=== PATIENT | male | born 1955 | race Caucasian/White ===

== ENCOUNTER 2020-11-04 13:02 | Emergency (ER) | payer OTHER ==
[~2020-11-04] VITALS: Ht 172.7 cm; Wt 101.2 kg
== END 2020-11-04 18:05 | disposition home or self-care (01) ==
LOC: ER 13:02
DX: R07.89 Other chest pain (principal); H53.8 Other visual disturbances

== ENCOUNTER 2021-02-09 15:32 | Emergency (ER) | payer OTHER ==
[~2021-02-09] VITALS: Ht 170.2 cm; Wt 102.5 kg
[2021-02-09] MEDS ORDERED: TAMSULOSIN HCL0.4 MG PO (15:41)
[2021-02-09] MEDS ORDERED: BUTALB-ASPIRIN1 EACH PO (21:02)
[2021-02-09] MEDS ORDERED: CLONAZEPAM0.5 MG PO (21:05)
== END 2021-02-09 21:20 | disposition home or self-care (01) ==
LOC: ER 15:32
DX: G43.909 Migraine, unspecified, not intractable, without status migrainosus (principal)

== ENCOUNTER 2022-03-16 10:24 | Emergency (ER) | payer OTHER ==
[~2022-03-16] VITALS: Ht 175.3 cm; Wt 114.3 kg
[~2022-03-16 10:24] MED LIST: BUTALB-ASPIRIN1 EACH PO; CLONAZEPAM0.5 MG PO; TAMSULOSIN HCL0.4 MG PO
[2022-03-16] MEDS ORDERED: MEDROLPACK PO (14:17)
[2022-03-16] MEDS ORDERED: METAXALONE800 MG PO (14:17)
[2022-03-16] MEDS ORDERED: ADVIL LIQUI-GE200 MG PO (14:17)
== END 2022-03-16 14:32 | disposition home or self-care (01) ==
LOC: ER 10:24
DX: M54.50 Low back pain, unspecified (principal)

== ENCOUNTER 2022-09-12 21:21 | Emergency (ER) | payer OTHER ==
[~2022-09-12] VITALS: Ht 175.3 cm; Wt 111.1 kg
[~2022-09-12 21:21] MED LIST changes: +ADVIL LIQUI-GE200 MG PO; +MEDROLPACK PO; +METAXALONE800 MG PO
[2022-09-12] MEDS ORDERED: TAMS0.4C PO (21:54)
[2022-09-12] MEDS ORDERED: PHOSPHASAL TAB1 EACH PO (21:55)
[2022-09-13] MEDS ORDERED: CIPRO500 MG PO (00:18)
== END 2022-09-13 00:37 | disposition home or self-care (01) ==
LOC: ER 21:21
DX: R30.0 Dysuria (principal); N40.0 Benign prostatic hyperplasia without lower urinary tract symptoms

== ENCOUNTER 2022-10-07 04:45 | Emergency (ER) | payer OTHER ==
[~2022-10-07] VITALS: Ht 175.3 cm; Wt 85.3 kg
[~2022-10-07 04:45] MED LIST changes: +CIPRO500 MG PO; +PHOSPHASAL TAB1 EACH PO; +TAMS0.4C PO
== END 2022-10-07 06:57 | disposition home or self-care (01) ==
LOC: ER 04:45
DX: R30.0 Dysuria (principal); N39.9 Disorder of urinary system, unspecified

== ENCOUNTER 2023-04-02 20:43 | Emergency (ER) | payer OTHER ==
[~2023-04-02] VITALS: Ht 175.3 cm; Wt 103.0 kg
[2023-04-02] MEDS ORDERED: TAMS0.4C (20:52)
[2023-04-02] MEDS ORDERED: NEURONTIN600 MG PO (20:53)
[2023-04-03] MEDS ORDERED: PYRIDIUM DS200 MG PO (03:22)
[2023-04-03] MEDS ORDERED: CIPRO500 MG PO (03:22)
== END 2023-04-03 03:46 ==
LOC: ER 20:43
PROVIDERS: General Practice
DX: N40.1 Benign prostatic hyperplasia with lower urinary tract symptoms (principal); R10.9 Unspecified abdominal pain; R30.0 Dysuria; N39.0 Urinary tract infection, site not specified; N20.0 Calculus of kidney; N21.0 Calculus in bladder
CPT/HCPCS: 36415; 74176; 96365; 96366; 99284; J0696; J1885; J3490; J7042

== ENCOUNTER 2023-04-04 11:51 | Emergency (ER) | payer OTHER ==
[~2023-04-04] VITALS: Ht 175.3 cm; Wt 101.6 kg
[~2023-04-04 11:51] MED LIST changes: +NEURONTIN600 MG PO; +PYRIDIUM DS200 MG PO; +TAMS0.4C
== END 2023-04-04 18:50 | disposition home or self-care (01) ==
LOC: ER 11:51
PROVIDERS: Emergency Medicine
DX: N21.0 Calculus in bladder (principal); R10.2 Pelvic and perineal pain; N39.0 Urinary tract infection, site not specified; R10.9 Unspecified abdominal pain; I10 Essential (primary) hypertension
CPT/HCPCS: 36415; 74176; 96365; 99284; J2270

== ENCOUNTER 2023-08-03 21:09 | Emergency (ER) | payer OTHER ==
[~2023-08-03] VITALS: Ht 172.7 cm; Wt 111.6 kg
== END 2023-08-04 00:41 | disposition home or self-care (01) ==
LOC: ER 21:10
DX: M54.9 Dorsalgia, unspecified (principal)
CPT/HCPCS: 72070; 72100; 96372; 99284; J1885; J2360; J3301

== ENCOUNTER 2024-02-16 07:43 | Outpatient (CLI) | payer OTHER | END 2024-02-16 07:45 | disposition home or self-care (01) | LOC: NUCLEAR 07:43 | PROVIDERS: ATTEND Internal Medicine | DX: R55 Syncope and collapse (principal) ==

== ENCOUNTER 2024-04-15 17:48 | Emergency (ER) | payer OTHER ==
[~2024-04-15] VITALS: Ht 172.7 cm; Wt 120.2 kg
[2024-04-15 18:49] LABS: HEMATOCRIT 43.2 % (39.0-48.0); HEMOGLOBIN 14.3 g/dL (13-16.00); MEAN CELL VOLUME 90.4 fL (80.0-100.00); MEAN CORPUSCULAR HEMOGLOBIN 29.9 pg (27.00-32.0); MEAN CORPUSCULAR HGB CONC 33.1 g/dl (32.0-36.0); RED BLOOD COUNT 4.78 M/uL (4.00-6.00); RED CELL DISTRIBUTION WIDTH 13.7 % (11.5-14.5)
[2024-04-15 18:51] LABS: PLATELET COUNT 121 K/uL (150-450)
[2024-04-15 19:15] LABS: PROTHROMBIN TIME 10.9 SECONDS (9.0-11.5)
[2024-04-15 19:17] LABS: CALCIUM 10.2 mg/dL (8.5-10.1); CREATININE SERUM 0.92 mg/dL (0.70-1.30); GFR 81.57; POTASSIUM 4.37 mEq/L (3.5-5.1)
[2024-04-15 19:21] LABS: D DIMER 0.25 MG/L; PARTIAL THROMBOPLASTIN TIME 28.9 SECONDS (22.0-34.0)
[2024-04-15] MEDS ORDERED: KETOROLAC TROMETHAMINE 30 MG VIAL IM STA (19:42)
[2024-04-15] MEDS ORDERED: KETOROLAC TROMETHAMINE 30 MG VIAL ONE (19:58)
== END 2024-04-15 20:04 | disposition home or self-care (01) ==
LOC: ER 17:49
PROVIDERS: General Practice
DX: R53.1 Weakness (principal); R29.898 Other symptoms and signs involving the musculoskeletal system
CPT/HCPCS: 36415; 96372; 99282; J1885

== ENCOUNTER 2025-05-24 18:27 | Emergency (ER) | payer OTHER ==
[~2025-05-24] VITALS: Ht 167.6 cm; Wt 117.5 kg
[2025-05-24] MEDS ORDERED: GUAIFENESIN/DEXTROMETHORPHAN 100MG/10ML BLIST.PACK PO ONE ×2 (19:30→19:50)
[2025-05-24] MEDS ORDERED: CETIRIZINE HCL 5 MG/5 ML ML PO ONE (19:30)
[2025-05-24] MEDS ORDERED: CEFTRIAXONE SODIUM 1,000 MG VIAL IV ONE (19:30)
[2025-05-24] MEDS ORDERED: CEFTRIAXONE SODIUM 1,000 MG VIAL ONE (19:49)
[2025-05-24] MEDS ORDERED: CETIRIZINE HCL 5MG/5ML BLIST.PACK PO ONE (19:49)
[2025-05-24 20:17] LABS: BASO % 0.9 % (0.1-1.2); EOS # 0.22 (0.04-0.54); EOS % 2.8 % (0.7-7.0); LYMPH # 2.00 (1.18-3.74); LYMPH % 25.7 % (19.3-53.1); MEAN PLATELET VOLUME 12.70 fl (9.4-12.4); MONO # 0.79 (0.24-0.82); MONO % 10.2 % (4.7-12.5); NEUT # 4.67 (1.56-6.13); NEUT % 60.1 % (34.0-71.1); RED CELL DISTRIBUTION WIDTH 14.0 % (11.6-14.4)
[2025-05-24 20:55] LABS: ALT/SGPT 44.0 U/L (12-78); AST/SGOT 31.0 U/L (15-37); BILIRUBIN TOTAL 0.49 mg/dL (0.3-1.2); BUN CREA RATIO 22.0 (7.0-25.0); CREATININE SERUM 0.95 mg/dL (0.70-1.30); GFR 78.37; GLOBULINA 3.4 G/DL (2.4-3.5); GLUCOSE FASTING 97.0 mg/dL (65-100); OSMOLALITY SERUM 286.0 MOSM/KG (275-295)
[2025-05-24 21:08] LABS: COVID-19 AG NEGATIVE (NEGATIVE)
[2025-05-24] MEDS ORDERED: AMOX-CLAV 875-1 EAC1 PO (21:32)
[2025-05-24] MEDS ORDERED: ZYRTEC10 MG PO (21:38)
[2025-05-24] MEDS ORDERED: TUSSIN DM LIQU118 ML PO (21:38)
[2025-05-24 22:01] VITALS: BP 150/73; O2SAT 96
== END 2025-05-24 22:03 ==
LOC: ER 18:27
PROVIDERS: General Practice
DX: R07.89 Other chest pain (principal); J00 Acute nasopharyngitis [common cold]; Z20.822 Contact with and (suspected) exposure to COVID-19; K12.2 Cellulitis and abscess of mouth
CPT/HCPCS: 36415; 71046; 93005; 96365; 99283; J0696